=== PATIENT | male | born 1960 | race African-American/Black ===

== ENCOUNTER 2016-07-12 17:25 | Emergency (ER) | payer OTHER ==
[~2016-07-12 17:25] MED LIST: ACET-706 PO; ACET325T16 PO; AMLO10TA2 PO; ASPI81TA2 PO; ATOR10TA60 PO; ATOR40TA59 PO; BENZ100C PO; CARV3.122 PO; CARV6.252 PO; CLIN-44 PO; CYCL10TA2 PO; DOXY-103 PO; FLUT9.9S NS; LACT1CAP8 PO; LISI2.5T PO; LISI40TA PO; LOSA100T6 PO; METF500T4 PO; PANT40GR PO; PANT40TA5 PO; PRED-220 PO; RANI150C PO; RANI150T2 PO; SUCR1TAB PO; TICA90TA PO; TRAM50TA PO; VITA1CAP PO
[2016-07-12] MEDS ORDERED: ASPIRIN 81 MG TAB.CHEW PO ONE (17:45)
[2016-07-12] MEDS ORDERED: NITROGLYCERIN SUBLINGUAL 0.4 MG BOTTLE OF 25. SL PRN (17:45)
[2016-07-12] MEDS ORDERED: FENTANYL PF 100 MCG/2 ML VIAL. IV PRN (17:45)
--- NOTE | 2016-07-12 18:01 | ED.ADGEN ---
Past Medical History Past Medical History: Arrhythmia, CAD, Diabetes-Type II, High Cholesterol, Hypertension, [place] Additional Past Medical Histor: chronic back pain Past Surgical History: Cholecystectomy, Other Additional Past Surgical Histo: PACEMAKER, HERNIA Alcohol Use: None Drug Use: None Adult General Chief Complaint Chief Complaint: Congestion HPI HPI Patient is a 56 year old man, history of type 2 diabetes mellitus, hypokalemia , CAD, who presents to the emergency department with complaint of cough productive of yellow-green sputum over the past several days, development of chest pain with coughing today. Patient states that he was sweaty today, Dr. Gomes was 98 orally, he is afebrile in the ED without receiving antipyretics. He denies any chills, any nausea or vomiting, any weakness numbness or tingling, any injuries. He did receive his flu vaccination this year, and his pneumonia vaccination. Denies any sick contacts or exposures, any recent travel or surgery , any swelling of extremities. Is not expressing any chest pain without coughing , is also experiencing mild rhinorrhea, very mild shortness of breath. Review of Systems Review of Systems Constitutional: Denies fever or chills. [] Eyes: Denies change in visual acuity. [] HENT: Denies nasal congestion or sore throat. [] Respiratory: Productive cough, mild shortness of breath, [] Cardiovascular: Chest pain lower ribs on the right hand side. GI: Denies abdominal pain, nausea, vomiting, bloody stools or diarrhea. [] : Denies dysuria. [] Musculoskeletal: Denies back pain or joint pain. [] Integument: Denies rash. [] Neurologic: Denies headache, focal weakness or sensory changes. [] Endocrine: Denies polyuria or polydipsia. [] Lymphatic: Denies swollen glands. [] Psychiatric: Denies depression or anxiety. [] Current Medications Current Medications Current Medications Medications (Trade) Dose Ordered Sig/Georgi Start Time Stop Time Status Last Admin Dose Admin Aspirin (Children'S Aspirin) 324 mg 1X ONCE 07/12/16 17:45 07/12/16 17:55 DC Fentanyl Citrate (Fentanyl 2ml Vial) 25 mcg PRN Q15MIN PRN 07/12/16 17:45 07/12/16 17:55 DC Nitroglycerin (Nitrostat) 0.4 mg PRN Q5MIN PRN 07/12/16 17:45 07/12/16 17:55 DC Allergies Allergies Allergies Coded Allergies Type Severity Reaction Last Updated Verified Penicillins Allergy Intermediate Rash 09/10/14 Yes Sulfa (Sulfonamide Antibiotics) Allergy Intermediate Rash 09/10/14 Yes lisinopril Allergy Intermediate 09/13/15 Yes Physical Exam Physical Exam Constitutional: Well developed, obese, no acute distress, non-toxic appearance. [] HENT: Normocephalic, atraumatic, bilateral external ears normal, oropharynx moist, no oral exudates, nose normal. [] Eyes: PERRLA, EOMI, conjunctiva normal, no discharge. [] Neck: Normal range of motion, no tenderness, supple, no stridor. [] Cardiovascular:Heart rate regular rhythm, no murmur, S1, S2, no rubs or gallops. Patient with reproducible chest wall tenderness along the fifth through eighth ribs in the anterior portion of the right chest wall, some also along the left, and in the midsternal region, no lesions, no crepitus or deformity identified, does reduce the patient's symptoms. Lungs & Thorax: Bilateral breath sounds clear to auscultation [, no wheezing, rhonchi, rales.] Abdomen: Bowel sounds normal, soft, no tenderness, no masses, no pulsatile masses. [] Skin: Warm, dry, no erythema, no rash. [] Back: No tenderness, no CVA tenderness. [] Extremities: No tenderness, no cyanosis, no clubbing, ROM intact, no edema. Negative Homans sign. [] Neurologic: Alert and oriented X 3, normal motor function, normal sensory function, no focal deficits noted. [] Psychologic: Affect normal, judgement normal, mood normal. [] Current Patient Data Vital Signs Vital Signs Date Time Temp Pulse Resp B/P Pulse Ox O2 Delivery O2 Flow Rate FiO2 07/12/16 19:11 64 16 123/76 95 Room Air 07/12/16 17:45 98.0 98.0 Lab Values Laboratory Tests Test 07/12/16 17:55 07/12/16 17:58 Influenza Type A Antigen Negative (NEGATIVE) Influenza Type B Antigen Negative (NEGATIVE) Glucose (Fingerstick) 155mg/dL (70-99) H EKG EKG EC: Sinus rhythm, heart rate 80 bpm, upright axis, QTC of 416, MD 182, QRS is 72, mild baseline artifact noted, no ST elevations or depressions, no evidence of acute ST abnormalities. As interpreted by me. [] Radiology/Procedures Radiology/Procedures Chest x-ray: PA and lateral: Patient with a dual-chamber ACD pacemaker in place , normal cardiopulmonary silhouette, no infiltrates, no effusions, pneumothorax , no acute abnormalities identified. As interpreted by me. Course & Med Decision Making Course & Med Decision Making Pertinent Labs and Imaging studies reviewed. (See chart for details) Patient's examination is consistent with musculoskeletal chest pain, following several days of cough. I do not have any concerns that this is cardiac in nature , patient costochondritis-type, reproducible chest pain. He is afebrile in the ED, denies any fever at home, oxygen saturation heart rate within normal limits. Chest x-ray is unremarkable, flu swab is negative. Discussed the patient that he is likely expressing a viral illness, we discussed supportive measures, and concerning measures that would prompt return to the emergency room. Patient is feeling better after receiving medications in the ED, which is understanding and agreement with plan as stated. Discharged home in stable condition. Dragon Disclaimer Dragon Disclaimer This electronic medical record was generated, in whole or in part, using a voice recognition dictation system. Departure Impression: Primary Impression: Costochondral chest pain Additional Impression: Viral illness Disposition: HOME, SELF-CARE Condition: IMPROVED Scripts Benzonatate (Tessalon Perle)100 Mg Capsule1 Cap PO TID PRN COUGH #21 CAP Prov:LEIGH FRAZIER DO 07/12/16 Naproxen 250 Mg [id number] Mg PO BID PRN CHEST PAIN #10 Prov:LEIGH FRAZIER DO 07/12/16 Cyclobenzaprine Hcl 10 Mg Jgygqy60 Mg PO TID PRN MUSCLE PAIN #12 TAB Prov:LEIGH FRAZIER DO 07/12/16 Problem Qualifiers LEIGH FRAZIER DO Jul 12, 2016 18:01
--- NOTE | 2016-07-12 18:20 | EKG ---
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
[2016-07-12 18:27] LABS: OBC FLU VALID
[2016-07-12] MEDS ORDERED: BENZ100C PO (18:47)
[2016-07-12] MEDS ORDERED: NAPR250T2 PO (18:47)
[2016-07-12] MEDS ORDERED: CYCL10TA2 PO (18:47)
[2016-07-12 19:11] VITALS: BP 123/76
--- NOTE | 2016-07-13 09:00 | RAD ---
Portable chest, 07/12/2016: History: Cough Comparison is made to a study from 02/25/2016. A left-sided transvenous pacemaker remains in place with 2 leads extending into the right heart. The heart size and pulmonary vascularity are normal. No pulmonary infiltrates are seen. There is unchanged blunting of the right lateral costophrenic angle compatible with scarring. The posterior costophrenic angles are sharp without evidence of free pleural fluid. There is an old healed left clavicular fracture. IMPRESSION: No acute cardiopulmonary abnormality is detected.
== END 2016-07-12 19:14 | disposition home or self-care (01) ==
LOC: ER 17:25
DX: M94.0 Chondrocostal junction syndrome [Tietze] (principal); B34.9 Viral infection, unspecified; I10 Essential (primary) hypertension; E11.9 Type 2 diabetes mellitus without complications; E78.00 Pure hypercholesterolemia, unspecified; I25.10 Atherosclerotic heart disease of native coronary artery without angina pectoris; I25.2 Old myocardial infarction; G89.29 Other chronic pain; Z95.0 Presence of cardiac pacemaker; Z90.49 Acquired absence of other specified parts of digestive tract; Z88.0 Allergy status to penicillin; Z88.2 Allergy status to sulfonamides; Z88.8 Allergy status to other drugs, medicaments and biological substances
CPT/HCPCS: 71020; 82947; 87804; 93005; 99285-25

== ENCOUNTER → 2016-09-29 | Outpatient (CLI) | payer OTHER ==
[~2016-09-29] MED LIST changes: +NAPR250T2 PO
--- NOTE | 2016-09-29 15:55 | CARD ---
APPROVED REPORT EXAM: Two-dimensional and M-mode echocardiogram with Doppler and color Doppler. Other Information Quality : Average Rhythm : NSR, PPM INDICATION LV Function: 2D DIMENSIONS RVDd2.5 (2.9-3.5cm)Left Atrium(2D)3.6 (1.6-4.0cm) IVSd1.1 (0.7-1.1cm)Aortic Root(2D)3.1 (2.0-3.7cm) LVDd5.1 (3.9-5.9cm)LVOT Diameter2.1 (1.8-2.4cm) PWd1.1 (0.7-1.1cm)LVDs3.7 (2.5-4.0cm) FS (%) 37.2 %SV64.5 ml LVEF(%)62.7 (>50%) Aortic Valve AoV Peak Woo.151.2cm/sAoV VTI25.8cm AO Peak GR.9.1mmHgLVOT Peak Woo.128.3cm/s LVOT VTI 24.50cmAO Mean GR.4mmHg ROXANNA (VMAX)2.69if2KAF (VTI)3.25cm2 Mitral Valve MV E Qkmzoyas55.4cm/sMV DECEL DVUH170wa MV A Dmvfnhpt80.3cm/sMV E Mean Gr.2mmHg MV RJZ87dzK/A Ratio0.8 MV A Kxmtzunf938qyBNU (PHT)4.76cm2 TDI E/Lateral E'4.9E/Medial E'7.7 Pulmonary Valve PV Peak Xmsjttnk905.4cm/sPV Peak Grad.4mmHg RVOT VTI14.2cm Tricuspid Valve TR P. Gjmzzzwu002lg/sRAP KRVXTDVE8dlSj TR Peak Gr.80leRxBHGV73ztFa Pulmonary Vein S1 Auoehpul56.5cm/sD2 Pbqerzjs15.8cm/s LEFT VENTRICLE The left ventricle is normal size. There is normal left ventricular wall thickness. Left ventricle sy stolic function is normal. The Ejection Fraction is 60-65%. There is normal LV segmental wall motion. Tissue Doppler imaging reveals mild left ventricular diastolic dysfunction. Transmitral Doppler flow pattern is Grade I-abnormal relaxation pattern. RIGHT VENTRICLE The right ventricle is normal size. The right ventricular systolic function is normal. There is a pac emaker lead seen in the RV/RA. ATRIA The left atrium size is normal. The right atrium size is normal. The interatrial septum is intact wit h no evidence for an atrial septal defect or patent foramen ovale as noted on 2-D or Doppler imaging. AORTIC VALVE The aortic valve is normal in structure and function. The aortic valve is trileaflet. Doppler and Col or Flow revealed no significant aortic regurgitation. There is no significant aortic valvular stenosi s. MITRAL VALVE The mitral valve is normal in structure. There is no mitral valve stenosis. Doppler and Color Flow re vealed mild mitral regurgitation. TRICUSPID VALVE The tricuspid valve is normal in structure and function. Doppler and Color Flow revealed moderate tri cuspid regurgitation. The PA pressure was estimated at 33 mmHg. There is no tricuspid valve stenosis. PULMONIC VALVE The pulmonic valve is not well visualized. Doppler and Color Flow revealed no pulmonic valvular regur gitation. There is no pulmonic valvular stenosis. GREAT VESSELS The aortic root is normal in size. Normal pulmonary venous flow (Doppler). The IVC is normal in size and collapses >50% with inspiration. PERICARDIAL EFFUSION There is no evidence of significant pericardial effusion. Critical Notification Critical Value: No <Conclusion> Left ventricle systolic function is normal. The Ejection Fraction is 60-65%. There is normal LV segmental wall motion. Transmitral Doppler flow pattern is Grade I-abnormal relaxation pattern. Mild mitral regurgitation. Moderate tricuspid regurgitation. The PA pressure was estimated at 33 mmHg. There is no evidence of significant pericardial effusion.
== END | disposition home or self-care (01) ==
LOC: ECHO 12:41
PROVIDERS: ATTEND Internal Medicine Cardiovascular Disease
DX: Z95.0 Presence of cardiac pacemaker (principal); I08.1 Rheumatic disorders of both mitral and tricuspid valves
CPT/HCPCS: 93306

== ENCOUNTER → 2017-10-19 | Outpatient (CLI) | payer OTHER | END | disposition home or self-care (01) | LOC: ECHO 10:40 | DX: I08.1 Rheumatic disorders of both mitral and tricuspid valves (principal); I25.10 Atherosclerotic heart disease of native coronary artery without angina pectoris; I27.20 Pulmonary hypertension, unspecified | CPT/HCPCS: 93306 ==

== ENCOUNTER 2018-01-29 23:57 | Inpatient (IN) | payer OTHER ==
[~2018-01-29] VITALS: Ht 172.7 cm; Wt 126.1 kg
[~2018-01-29 23:57] MED LIST changes: +ASPI-630 PO; -ASPI81TA2 PO; -CLIN-44 PO; +CLIN150C14 PO; -DOXY-103 PO; +DOXY100T10 PO; +LISI-130 PO; -LISI40TA PO; -METF500T4 PO; +METF500T5 PO; -NAPR250T2 PO; +NAPR250T6 PO
[2018-01-30] MEDS ORDERED: NITROGLYCERIN SUBLINGUAL 0.4 MG BOTTLE OF 25. SL PRN (00:30)
--- NOTE | 2018-01-30 00:39 | PHYS DOC ---
Past Medical History Past Medical History: Arrhythmia, CAD, Diabetes-Type II, High Cholesterol, Hypertension, [place] Additional Past Medical Histor: chronic back pain, [place] 2016 Past Surgical History: Cholecystectomy, Other Additional Past Surgical Histo: PACEMAKER, HERNIA Alcohol Use: None Drug Use: None Adult General Chief Complaint Chief Complaint: CHEST PAIN HPI HPI Patient is a 57 year old male who presents with chest pain. Patient has a history of non-STEMI in review area of 2016 which resulted in placement of a drug-eluting stent in the LAD. Patient is followed by Dr. Bosch. Patient also has a history significant for type 2 diabetes, hyperlipidemia, hypertension , GERD and sick sinus syndrome with a pacemaker placed. Patient states his chest pain started earlier this evening which was several hours ago and that he did take aspirin and nitroglycerin prior to arrival. Patient now is pain-free no acute distress. Pt most recently had an echo done in October [address] Waite with the following results: The left ventricular systolic function is normal and the ejection fraction is within normal range. The Ejection Fraction is 55-60%. There is normal LV segmental wall motion. There is a pacemaker lead in the right ventricle. Doppler and Color-flow revealed mild mitral regurgitation. Doppler and Color Flow revealed mild to moderate tricuspid regurgitation. There is moderate pulmonary hypertension. The PA pressure was estimated at 41 mmHg. Signed by : Jorge Waite, Electronically Approved : 10/19/2017 12:02:25 Review of Systems Review of Systems Constitutional: Denies fever or chills [] Eyes: Denies change in visual acuity, redness, or eye pain [] HENT: Denies nasal congestion or sore throat [] Respiratory: Denies cough or shortness of breath [] Cardiovascular: No additional information not addressed in HPI [] GI: Denies abdominal pain, nausea, vomiting, bloody stools or diarrhea [] : Denies dysuria or hematuria [] Musculoskeletal: Denies back pain or joint pain [] Integument: Denies rash or skin lesions [] Neurologic: Denies headache, focal weakness or sensory changes [] Endocrine: Denies polyuria or polydipsia [] All other systems were reviewed and found to be within normal limits, except as documented in this note. Current Medications Current Medications Current Medications Medications (Trade) Dose Ordered Sig/Georgi Start Time Stop Time Status Last Admin Dose Admin Aspirin (Children'S Aspirin) 324 mg 1X ONCE 8/21/18 01:00 01/30/18 01:01 Nitroglycerin (Nitrostat) 0.4 mg PRN Q5MIN PRN 01/30/18 00:30 Allergies Allergies Allergies Coded Allergies Type Severity Reaction Last Updated Verified Penicillins Allergy Intermediate Rash 09/10/14 Yes Sulfa (Sulfonamide Antibiotics) Allergy Intermediate Rash 09/10/14 Yes lisinopril Allergy Intermediate 09/13/15 Yes Physical Exam Physical Exam Constitutional: Well developed, well nourished, no acute distress, non-toxic appearance. [] HENT: Normocephalic, atraumatic, bilateral external ears normal, oropharynx moist, no oral exudates, nose normal. [] Eyes: PERRLA, EOMI, conjunctiva normal, no discharge. [] Neck: Normal range of motion, no tenderness, supple, no stridor. [] Cardiovascular:Heart rate regular rhythm, no murmur [] Lungs & Thorax: Bilateral breath sounds clear to auscultation [] Abdomen: Bowel sounds normal, soft, no tenderness, no masses, no pulsatile masses. [] Skin: Warm, dry, no erythema, no rash. [] Back: No tenderness, no CVA tenderness. [] Extremities: No tenderness, no cyanosis, no clubbing, ROM intact, no edema. [] Neurologic: Alert and oriented X 3, normal motor function, normal sensory function, no focal deficits noted. [] Psychologic: Affect normal, judgement normal, mood normal. [] Current Patient Data Vital Signs Vital Signs Date Time Temp Pulse Resp B/P (MAP) Pulse Ox O2 Delivery O2 Flow Rate FiO2 01/30/18 00:02 98.8 71 18 168/86 (113) 95 Room Air 98.8 EKG EKG Normal sinus rhythm at a rate of 81[] Radiology/Procedures Radiology/Procedures [] Course & Med Decision Making Course & Med Decision Making Pertinent Labs and Imaging studies reviewed. (See chart for details) [] Dragon Disclaimer Dragon Disclaimer This electronic medical record was generated, in whole or in part, using a voice recognition dictation system. Departure Departure Referrals: RANDY YOUNG MD (PCP) RONALD SANTOS MD Jan 30, 2018 00:39
[2018-01-30] MEDS ORDERED: ASPIRIN CHEWABLE 81 MG TABLET. PO ONE (01:00)
[2018-01-30 01:04] LABS: BASO # 0.1 x10^3/uL (0.0-0.2); BASO % 1 % (0-3); EOS # 0.3 x10^3/uL (0.0-0.7); EOS % 3 % (0-3); HEMATOCRIT 37.8 % (39.0-53.0); HEMOGLOBIN 12.6 g/dL (13.0-17.5); LYMPH # 2.5 x10^3/uL (1.0-4.8); LYMPH % 26 % (24-48); MEAN CORPUSCULAR HEMOGLOBIN 30 pg (25-35); MEAN CORPUSCULAR HGB CONC 33 g/dL (31-37); MEAN CORPUSCULAR VOLUME 90 fL (79-100); MONO # 0.8 x10^3/uL (0.0-1.1); MONO % 8 % (0-9); NEUT # 5.9 x10^3uL (1.8-7.7); NEUT % 62 % (31-73); PLATELET COUNT 321 x10^3/uL (140-400); RED BLOOD COUNT 4.18 x10^6/uL (4.30-5.70); RED CELL DISTRIBUTION WIDTH 15.3 % (11.5-14.5); WHITE BLOOD COUNT 9.6 x10^3/uL (4.0-11.0)
[2018-01-30 01:14] LABS: CALCIUM 9.5 mg/dL (8.5-10.1); CREATININE 1.3 mg/dL (0.7-1.3); GFR 68.4; POTASSIUM 3.8 mmol/L (3.5-5.1)
[2018-01-30 01:20] LABS: ALBUMIN 3.4 g/dL (3.4-5.0); TOTAL BILIRUBIN 0.7 mg/dL (0.2-1.0); TOTAL PROTEIN 6.9 g/dL (6.4-8.2)
--- NOTE | 2018-01-30 02:04 | EKG ---
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
[2018-01-30 04:00] VITALS: BP 151/88
[2018-01-30] MEDS ORDERED: DEXTROSE 50% 25 GM / 50ML DISP.SYRIN. IV PRN (05:00)
[2018-01-30 07:00] VITALS: BP 142/68
--- NOTE | 2018-01-30 07:46 | RAD ---
Portable chest, 01/30/2018: HISTORY: Chest pain Comparison is made to a study from 07/12/2016. A left-sided transvenous pacemaker remains in place with 2 leads extending in the right heart. The heart is at the upper limits of normal in size. The pulmonary vascularity is normal. There is minimal linear scarring or atelectasis in the right parahilar region. There is increased density projected over the lung bases due to the patient's overlying abdominal pannus. No definite pulmonary consolidation or pleural fluid is seen. IMPRESSION: 1. Borderline cardiomegaly. 2. Minimal right perihilar linear scarring or atelectasis. Electronically signed by: Arthur Gray MD (01/30/2018 7:43 AM) [facility]
[2018-01-30] MEDS ORDERED: ESCITALOPRAM OX20 MG PO (08:27)
[2018-01-30] MEDS ORDERED: ACETAMINOPHEN 325 MG TABLET. PO PRN (08:30)
--- NOTE | 2018-01-30 08:41 | PDOC ---
PROGRESS NOTES Subjective Subjective Patient without complaint, denies CP or SOA. Objective Objective Vital Signs Date Time Temp Pulse Resp B/P (MAP) Pulse Ox O2 Delivery O2 Flow Rate FiO2 01/30/18 07:00 97.7 72 17 142/68 (92) 94 97.7 01/30/18 04:31 Room Air Intake and Output 01/30/18 07:00 Intake Total 0 ml Balance 0 ml Intake Oral 0 ml Physical Exam Abdomen: Normal bowel sounds, Soft, No tenderness Heart: Regular rate Extremities: No edema General: Alert, Oriented X3, No acute distress Lungs: Clear to auscultation Plan Plan of Care 1. Chest pain and palpitations with hx CAD - symptoms resolved. EKG reportedly WNL. First Troponin negative. Telemetry shows patient in sinus presently but some runs of HR in the 90's with wide QRS suggesting paced rhythm? Check another troponin. Will consult Dr Bosch to review patient's telemetry. Had normal pacemaker check last month per office chart. Anticipate home later today if troponin is negative and Cardiology in agreement. Patient had echo and MPI in October that were unremarkable. 2. HTN - controlled, continue home meds. 3. DM2 - controlled with Metformin. 4. chronic anxiety - stable, continue Lexapro. Comment Review of Relevant I have reviewed the following items selvin (where applicable) has been applied. Labs Laboratory Tests Test 01/30/18 00:49 01/30/18 01:50 01/30/18 07:07 White Blood Count 9.6 x10^3/uL (4.0-11.0) Red Blood Count 4.18 x10^6/uL (4.30-5.70) Hemoglobin 12.6 g/dL (13.0-17.5) Hematocrit 37.8 % (39.0-53.0) Mean Corpuscular Volume 90 fL (79-100) Mean Corpuscular Hemoglobin 30 pg (25-35) Mean Corpuscular Hemoglobin Concent 33 g/dL (31-37) Red Cell Distribution Width 15.3 % (11.5-14.5) Platelet Count 321 x10^3/uL (140-400) Neutrophils (%) (Auto) 62 % (31-73) Lymphocytes (%) (Auto) 26 % (24-48) Monocytes (%) (Auto) 8 % (0-9) Eosinophils (%) (Auto) 3 % (0-3) Basophils (%) (Auto) 1 % (0-3) Neutrophils # (Auto) 5.9 x10^3uL (1.8-7.7) Lymphocytes # (Auto) 2.5 x10^3/uL (1.0-4.8) Monocytes # (Auto) 0.8 x10^3/uL (0.0-1.1) Eosinophils # (Auto) 0.3 x10^3/uL (0.0-0.7) Basophils # (Auto) 0.1 x10^3/uL (0.0-0.2) Sodium Level 141 mmol/L (136-145) Potassium Level 3.8 mmol/L (3.5-5.1) Chloride Level 103 mmol/L (98-107) Carbon Dioxide Level 27 mmol/L (21-32) Anion Gap 11 (6-14) Blood Urea Nitrogen 13 mg/dL (8-26) Creatinine 1.3 mg/dL (0.7-1.3) Estimated GFR (Cockcroft-Gault) 68.4 BUN/Creatinine Ratio 10 (6-20) Glucose Level 138 mg/dL (70-99) Calcium Level 9.5 mg/dL (8.5-10.1) Total Bilirubin 0.7 mg/dL (0.2-1.0) Aspartate Amino Transf (AST/SGOT) 19 U/L (15-37) Alanine Aminotransferase (ALT/SGPT) 35 U/L (16-63) Alkaline Phosphatase 163 U/L (46-116) Creatine Kinase 122 U/L (39-308) Creatine Kinase MB (Mass) 1.1 ng/mL (0.0-3.6) Creatine Kinase MB Relative Index 0.9 % (0-4) Total Protein 6.9 g/dL (6.4-8.2) Albumin 3.4 g/dL (3.4-5.0) Albumin/Globulin Ratio 1.0 (1.0-1.7) Bedside Troponin I 0.00 ng/ml (<0.08) Glucose (Fingerstick) 101 mg/dL (70-99) Laboratory Tests Test 01/30/18 00:49 01/30/18 01:50 01/30/18 07:07 White Blood Count 9.6 x10^3/uL (4.0-11.0) Red Blood Count 4.18 x10^6/uL (4.30-5.70) Hemoglobin 12.6 g/dL (13.0-17.5) Hematocrit 37.8 % (39.0-53.0) Mean Corpuscular Volume 90 fL (79-100) Mean Corpuscular Hemoglobin 30 pg (25-35) Mean Corpuscular Hemoglobin Concent 33 g/dL (31-37) Red Cell Distribution Width 15.3 % (11.5-14.5) Platelet Count 321 x10^3/uL (140-400) Neutrophils (%) (Auto) 62 % (31-73) Lymphocytes (%) (Auto) 26 % (24-48) Monocytes (%) (Auto) 8 % (0-9) Eosinophils (%) (Auto) 3 % (0-3) Basophils (%) (Auto) 1 % (0-3) Neutrophils # (Auto) 5.9 x10^3uL (1.8-7.7) Lymphocytes # (Auto) 2.5 x10^3/uL (1.0-4.8) Monocytes # (Auto) 0.8 x10^3/uL (0.0-1.1) Eosinophils # (Auto) 0.3 x10^3/uL (0.0-0.7) Basophils # (Auto) 0.1 x10^3/uL (0.0-0.2) Sodium Level 141 mmol/L (136-145) Potassium Level 3.8 mmol/L (3.5-5.1) Chloride Level 103 mmol/L (98-107) Carbon Dioxide Level 27 mmol/L (21-32) Anion Gap 11 (6-14) Blood Urea Nitrogen 13 mg/dL (8-26) Creatinine 1.3 mg/dL (0.7-1.3) Estimated GFR (Cockcroft-Gault) 68.4 BUN/Creatinine Ratio 10 (6-20) Glucose Level 138 mg/dL (70-99) Calcium Level 9.5 mg/dL (8.5-10.1) Total Bilirubin 0.7 mg/dL (0.2-1.0) Aspartate Amino Transf (AST/SGOT) 19 U/L (15-37) Alanine Aminotransferase (ALT/SGPT) 35 U/L (16-63) Alkaline Phosphatase 163 U/L (46-116) Creatine Kinase 122 U/L (39-308) Creatine Kinase MB (Mass) 1.1 ng/mL (0.0-3.6) Creatine Kinase MB Relative Index 0.9 % (0-4) Total Protein 6.9 g/dL (6.4-8.2) Albumin 3.4 g/dL (3.4-5.0) Albumin/Globulin Ratio 1.0 (1.0-1.7) Bedside Troponin I 0.00 ng/ml (<0.08) Glucose (Fingerstick) 101 mg/dL (70-99) Medications Current Medications Aspirin (Children'S Aspirin) 324 mg 1X ONCE PO Last administered on 01/30/18at 01:02; Start 01/30/18 at 01:00; Stop 01/30/18 at 01:01; Status DC Nitroglycerin (Nitrostat) 0.4 mg PRN Q5MIN PRN SL CHEST PAIN; Start 01/30/18 at 00:30 Dextrose (Dextrose 50%-Water Syringe) 12.5 gm PRN Q15MIN PRN IV SEE COMMENTS; Start 01/30/18 at 05:00 Acetaminophen (Tylenol) 650 mg PRN Q6HRS PRN PO MILD PAIN / TEMP; Start at 08:30; Status UNV Aspirin (Children'S Aspirin) 81 mg DAILY PO ; Start 01/30/18 at 09:00; Status UNV Atorvastatin Calcium (Lipitor) 40 mg HS PO ; Start 01/30/18 at 21:00; Status UNV Carvedilol (Coreg) 6.25 mg BIDWMEALS PO ; Start 01/30/18 at 17:00; Status UNV Pantoprazole Sodium (Protonix) 40 mg DAILY PO ; Start 01/30/18 at 09:00; Status UNV Non-Formulary Medication (Fluticasone Propionate (Flonase Allergy Relief)) 2 sprays DAILY NS ; Start 01/30/18 at 09:00; Status UNV Non-Formulary Medication (Losartan Potassium ) 100 mg DAILY PO ; Start 01/30/18 at 09:00; Status UNV Active Scripts Active Escitalopram Oxalate 20 Mg Tablet 1 Tab PO DAILY Naproxen 250 Mg Tablet 250 Mg PO BID PRN Carvedilol 6.25 Mg Tablet 6.25 Mg PO BIDWMEALS Mapap (Acetaminophen) 325 Mg Tablet 650 Mg PO PRN Q6HRS PRN Atorvastatin Calcium 40 Mg Tablet 40 Mg PO HS Reported Losartan Potassium 100 Mg Tablet 100 Mg PO DAILY LAST DOSE GIVEN: DATE: 02/06/16 TIME: 9 AM NEXT DOSE DUE: DATE: 02/07/16 TIME: 9 AM Flonase Allergy Relief (Fluticasone Propionate) 9.9 Ml [place].susp 2 Sprays NS DAILY Aspirin 81 Mg Tab.chew 1 Tab PO DAILY LAST DOSE GIVEN: DATE: 02/06/16 TIME: 9 AM NEXT DOSE DUE: DATE: 02/07/16 TIME: 9 AM Metformin Hcl 500 Mg Tablet 1 Tab PO DAILY LAST DOSE GIVEN: DATE: 02/06/16 TIME: 9 AM NEXT DOSE DUE: DATE: 02/07/16 TIME: 9 AM Pantoprazole Sodium 40 Mg Tablet.dr 40 Mg PO DAILY LAST DOSE GIVEN: DATE: 02/06/16 TIME: 7:30 AM NEXT DOSE DUE: DATE: 02/07/16 TIME: one hour to one half hour before breakfast Vitals/I & O Vital Sign - Last 24 Hours 01/30/18 01/30/18 01/30/18 01/30/18 00:02 04:00 04:31 07:00 Temp 98.8 97.7 97.7 98.8 97.7 97.7 Pulse 71 59 72 Resp 18 18 17 B/P (MAP) 168/86 (113) 151/88 (109) 142/68 (92) Pulse Ox 95 94 94 O2 Delivery Room Air Room Air Room Air Intake and Output 01/29/18 01/29/18 01/30/18 15:00 23:00 07:00 Intake Total 0 ml Balance 0 ml RANDY YOUNG MD Jan 30, 2018 08:41
[2018-01-30] MEDS ORDERED: LOSARTAN POTASSIUM 50 MG TABLET. PO SCH (09:00)
[2018-01-30] MEDS ORDERED: FLUTICASONE 50MCG/NASAL SPRAY 16GM BOTTLE. NS SCH (09:00)
[2018-01-30] MEDS ORDERED: PANTOPRAZOLE 40 MG TABLET.DR. PO SCH (09:00)
[2018-01-30] MEDS ORDERED: ASPIRIN CHEWABLE 81 MG TABLET. PO SCH (09:00)
[2018-01-30] MEDS ORDERED: CARVEDILOL 6.25 MG TABLET. PO SCH (09:00)
--- NOTE | 2018-01-30 09:22 | SSS ---
ADMIT DATE: DATE OF DISCHARGE: 01/30/2018. CHIEF COMPLAINT: Chest pain and palpitations. HISTORY OF PRESENT ILLNESS: The patient is a 57-year-old male with a history of coronary artery disease who presented to the Emergency Room with the above complaint. He reported the onset of palpitations on the evening prior to admission. He was at home and got up to go take his nighttime medications. He had the onset of palpitations. These were accompanied by some diffuse chest pain and mild lightheadedness. He sat down and rested and the symptoms resolved, but then they recurred. He called ambulance and was brought to the Emergency Room. Initial evaluation there included a troponin, which was 0.00. Chest x-ray was clear, and an EKG was reportedly without acute ischemic change. Due to his history of coronary artery disease, the patient was admitted for further evaluation. PAST MEDICAL HISTORY: Coronary artery disease with stent placement to the LAD, non-ST elevated myocardial infarction 07/28. Asthma, sick sinus syndrome, diabetes mellitus type 2, hypertension, hyperlipidemia, chronic anxiety, GERD, allergic rhinitis. PAST SURGICAL HISTORY: Pacemaker placement, cholecystectomy, umbilical hernia repair. ALLERGIES: THE PATIENT IS ALLERGIC TO PENICILLINS, SULFA AND LISINOPRIL. HOME MEDICATIONS: Aspirin 81 mg daily, fexofenadine 180 mg daily, albuterol inhaler p.r.n., losartan 100 mg daily, metformin extended release 500 mg daily, carvedilol 6.25 mg b.i.d., atorvastatin 40 mg at bedtime, escitalopram 20 mg daily, pantoprazole 40 mg daily, Flonase daily. FAMILY HISTORY: Noncontributory. SOCIAL HISTORY: The patient is single. He has a long smoking history, but quit smoking in 2013. He does not drink alcohol to excess. 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 REVIEW OF SYSTEMS: The patient denies fever or chills. He denies cough or wheezing. He denies other recent episodes of chest pain or palpitations. He denies abdominal pain, nausea or vomiting. He denies problems with his bowels. PHYSICAL EXAMINATION: GENERAL: The patient is alert and oriented x 3, resting comfortably in bed in no acute distress. HEENT: PERRL, EOMI, sclerae clear. Oropharynx: Mucous membranes moist. NECK: Supple, without lymphadenopathy. CHEST: Clear to auscultation. CARDIOVASCULAR: Regular rhythm without murmur. ABDOMEN: Soft, nontender, normoactive bowel sounds are present. EXTREMITIES: Without edema. HOSPITAL COURSE: The patient has had no further symptoms since admission. He is in sinus rhythm on telemetry. However, telemetry also shows some runs of a heart rate in the 90s with a wide QRS, suggesting a paced rhythm. Dr. Bosch was consulted to review the patient's telemetry. The patient did have a normal pacemaker check last month. He also had an echocardiogram and an MPI in October that were unremarkable. Dr Bosch felt that the patient's symptoms could be related to his sensing the ventricular pacing but that the pacemaker is working properly and no changes to it are indicated. The second Troponin was also negative and Cardiology felt the patient was stable for discharge home. The patient's other chronic medical conditions including hypertension, diabetes and chronic anxiety have been controlled with his usual medications, and these will be continued. FINAL DIAGNOSES: 1. Palpitations. 2. Coronary artery disease. 3. Hypertension. 4. Diabetes mellitus type 2. 5. Chronic anxiety. 6. Asthma. DISCHARGE MEDICATIONS: Remain the same as at admission. FOLLOWUP: With Dr. Lopez within 2 weeks. RANDY LOPEZ MD DR: SLOAN/freddy JOB#: [id number] / [id number] LOKESH
[2018-01-30 11:00] VITALS: BP 150/84
--- NOTE | 2018-01-30 11:37 | PDOC2 ---
DAYSIBEN Dwight [employer]ISH [employer] A [employer]ANG[employer] IN[employer] 01/30/18 1137: CARDIAC CONSULT DATE OF CONSULT Date of Consult DATE: 01/30/18 TIME: 11:21 REASON FOR CONSULT Reason for Consult: palpitations and abnormal telemetry REFERRING PHYSICIAN Referring Physician: Jessica SOURCE Source: Chart review, Patient HISTORY OF PRESENT ILLNESS HISTORY OF PRESENT ILLNESS 57 year old male well known to this practice with a history of NSTEMI/CAD and previous PCI/ROSA to the LAD, SSS with dual chamber [facility] PPM, HTN, HLD and obesity who presented to ER yesterday with c/o chest pain which he treated with ASA and NTG. Symptoms occurred prior to arrival in ER and have not recurred with exception of palpitations. Currently symptom free in bed with cardiology evaluation in October demonstrating fixed inferior defect and preserved LV function. EKG without acute changes and troponin levels not consistent with AMI. Reason for Visit: abnormal telemetry PAST MEDICAL HISTORY Cardiovascular: CAD (with ROSA to LAD - 2015), HTN, Hyperlipidemia, Other (SSS with [facility] PPM) Pulmonary: Asthma GI: Other (obesity) Psych: Anxiety, Depression ENT: Allergic Rhinitis Endocrine: Diabetes (type II) PAST SURGICAL HISTORY Past Surgical History: Pacemaker, Cholecystectomy, Hernia Repair FAMILY HISTORY Family History: Alzheimer's Disease, Diabetes, Heart Disease SOCIAL HISTORY Smoke: Quit ALCOHOL: none Drugs: None Lives: Alone CURRENT MEDICATIONS CURRENT MEDICATIONS Current Medications Medications (Trade) Dose Ordered Sig/Georgi Route PRN Reason Start Time Stop Time Status Last Admin Dose Admin Aspirin (Children'S Aspirin) 324 mg 1X ONCE PO 01/30/18 01:00 01/30/18 01:01 DC 01/30/18 01:02 Aspirin (Children'S Aspirin) 81 mg DAILY PO 01/30/18 09:00 01/30/18 08:57 Carvedilol (Coreg) 6.25 mg BIDWMEALS PO 01/30/18 09:00 01/30/18 08:57 Pantoprazole Sodium (Protonix) 40 mg DAILYAC PO 01/30/18 09:00 01/30/18 08:57 Fluticasone Propionate (Flonase) 2 spray DAILY NS 01/30/18 09:00 01/30/18 08:57 Losartan Potassium (Cozaar) 100 mg DAILY PO 01/30/18 09:00 01/30/18 08:57 ALLERGIES ALLERGIES: Coded Allergies: Penicillins (Verified Allergy, Intermediate, Rash, 09/10/14) Sulfa (Sulfonamide Antibiotics) (Verified Allergy, Intermediate, Rash, 09/10) lisinopril (Verified Allergy, Intermediate, 09/13/15) caused cough ROS Review of System 10 point review with pertinent positives in HPI PHYSICAL EXAM General: Alert, Oriented X3, Cooperative, No acute distress HEENT: Atraumatic, PERRLA Lungs: Clear to auscultation Heart: Normal S1, Normal S2 Abdomen: Normal bowel sounds, Soft Extremities: Normal pulses Skin: No rashes Neuro: Normal speech Psych/Mental Status: Mental status NL, Mood NL MUSCULOSKELETAL: No deformity VITALS VITALS Vital Signs Date Time Temp Pulse Resp B/P (MAP) Pulse Ox O2 Delivery O2 Flow Rate FiO2 01/30/18 08:57 72 142/68 01/30/18 08:00 Room Air 01/30/18 07:00 97.7 17 94 97.7 LABS Lab: Laboratory Tests Test 01/30/18 00:49 01/30/18 01:50 01/30/18 07:07 01/30/18 09:00 White Blood Count 9.6 x10^3/uL (4.0-11.0) Red Blood Count 4.18 x10^6/uL (4.30-5.70) Hemoglobin 12.6 g/dL (13.0-17.5) Hematocrit 37.8 % (39.0-53.0) Mean Corpuscular Volume 90 fL (79-100) Mean Corpuscular Hemoglobin 30 pg (25-35) Mean Corpuscular Hemoglobin Concent 33 g/dL (31-37) Red Cell Distribution Width 15.3 % (11.5-14.5) Platelet Count 321 x10^3/uL (140-400) Neutrophils (%) (Auto) 62 % (31-73) Lymphocytes (%) (Auto) 26 % (24-48) Monocytes (%) (Auto) 8 % (0-9) Eosinophils (%) (Auto) 3 % (0-3) Basophils (%) (Auto) 1 % (0-3) Neutrophils # (Auto) 5.9 x10^3uL (1.8-7.7) Lymphocytes # (Auto) 2.5 x10^3/uL (1.0-4.8) Monocytes # (Auto) 0.8 x10^3/uL (0.0-1.1) Eosinophils # (Auto) 0.3 x10^3/uL (0.0-0.7) Basophils # (Auto) 0.1 x10^3/uL (0.0-0.2) Sodium Level 141 mmol/L (136-145) Potassium Level 3.8 mmol/L (3.5-5.1) Chloride Level 103 mmol/L (98-107) Carbon Dioxide Level 27 mmol/L (21-32) Anion Gap 11 (6-14) Blood Urea Nitrogen 13 mg/dL (8-26) Creatinine 1.3 mg/dL (0.7-1.3) Estimated GFR (Cockcroft-Gault) 68.4 BUN/Creatinine Ratio 10 (6-20) Glucose Level 138 mg/dL (70-99) Calcium Level 9.5 mg/dL (8.5-10.1) Total Bilirubin 0.7 mg/dL (0.2-1.0) Aspartate Amino Transf (AST/SGOT) 19 U/L (15-37) Alanine Aminotransferase (ALT/SGPT) 35 U/L (16-63) Alkaline Phosphatase 163 U/L (46-116) Creatine Kinase 122 U/L (39-308) Creatine Kinase MB (Mass) 1.1 ng/mL (0.0-3.6) Creatine Kinase MB Relative Index 0.9 % (0-4) Total Protein 6.9 g/dL (6.4-8.2) Albumin 3.4 g/dL (3.4-5.0) Albumin/Globulin Ratio 1.0 (1.0-1.7) Bedside Troponin I 0.00 ng/ml (<0.08) Glucose (Fingerstick) 101 mg/dL (70-99) Troponin I Quantitative < 0.017 ng/mL (0.000-0.055) IMAGES IMAGES CXR: Comparison is made to a study from 07/12/2016. A left-sided transvenous pacemaker remains in place with 2 leads extending in the right heart. The heart is at the upper limits of normal in size. The pulmonary vascularity is normal. There is minimal linear scarring or atelectasis in the right parahilar region. There is increased density projected over the lung bases due to the patient's overlying abdominal pannus. No definite pulmonary consolidation or pleural fluid is seen. IMPRESSION: 1. Borderline cardiomegaly. 2. Minimal right perihilar linear scarring or atelectasis. EKG EKG SR without acute changes ECHOCARDIOGRAM ECHOCARDIOGRAM 10/19/2017: TTE: The left ventricular systolic function is normal and the ejection fraction is within normal range. The Ejection Fraction is 55-60%. There is normal LV segmental wall motion. There is a pacemaker lead in the right ventricle. Doppler and Color-flow revealed mild mitral regurgitation. Doppler and Color Flow revealed mild to moderate tricuspid regurgitation. There is moderate pulmonary hypertension. The PA pressure was estimated at 41 mmHg. STRESS TEST STRESS TEST 10/19/2017: MPI: 1. No evidence of stress induced EKG changes. 2. Fixed inferior wall defect. 3. Normal LV function. EF > 65% 4. Low risk study. HEART CATH HEART CATH 08/05/2015: Hemodynamics. Left ventricular pressure 118/14, aortic root pressure 116/68. Coronaries. Left main. The left main was a short vessel with no lesions. Left anterior descending. The LAD was a moderate size vessel. It had a diffuse proximal to mid lesion of 90% or greater. Left circumflex. The left circumflex was a moderately large vessel. It had mid 25-30% lesion present. Right coronary artery. The right coronary was a large dominant vessel. It had mid 20% lesion. <Conclusion> Severe single coronary artery disease with a 90% lesion of the LAD. Mild to moderate disease in the left circumflex and the right coronary artery with no lesions greater than 30%. Successful drug-eluting stent placement to the LAD lesion decreasing a 90% lesion to 0%. ASSESSMENT/PLAN ASSESSMENT/PLAN 1. abnormal telemetry --tele strip reviewed --wide complex rhythm likely V-paced, however, pace detect not enabled on tele monitor, couple of beats appear to have very small spikes --? palps associated with this; known to have symptoms with ventricular pacing and this is noted on last interrogation done in December --contact office and RN reviewed January download on PPM -- no significant findings & no abnormalities --continue to monitor via remote PPM monitoring 2. chest pain --known disease with stent to LAD in 2015 --? related to ventricular pacing --ischemic evaluation in May demonstrated fixed inferior defect on MPI and preserved LV function --no indication for further evaluation at this point; if continued/recurrent CP then would consider cardiac cath for further evaluation 3. SSS with dual chamber PPM --interrogations/downloads as noted above --continue routine monitoring 4. anxiety --suspect his anxiety is playing into symptoms Agreeable with discharge; follow up with Dr. Bosch in the office LUDMILA BOSCH MD 01/30/187: CARDIAC CONSULT ASSESSMENT/PLAN ASSESSMENT/PLAN Patient seen and examined. Agree with [employer]'s assessment and plan. Tele showed ventricular paced rhythm Recent device check showed normal function CP atypical - LA ruled out Recent MPI without any significant ischemia Follow up in our office as scheduled Thank you for your consultation BEN TAVAREZ APRN Jan 30, 2018 11:37 LUDMILA BOSCH MD Jan 30, 2018 21:06
[2018-01-30] MEDS ORDERED: ATORVASTATIN CALCIUM 40 MG TABLET. PO SCH (21:00)
== END 2018-01-30 13:18 | disposition home or self-care (01) | DRG 303 ==
LOC: ER 23:57 → 5 NORTH 01-30 02:30
PROVIDERS: ADMIT Family Medicine; ATTEND Family Medicine
DX: I25.10 Atherosclerotic heart disease of native coronary artery without angina pectoris (principal); Z68.41 Body mass index [BMI] 40.0-44.9, adult; R00.2 Palpitations; J30.9 Allergic rhinitis, unspecified; I10 Essential (primary) hypertension; E78.00 Pure hypercholesterolemia, unspecified; E11.9 Type 2 diabetes mellitus without complications; E78.5 Hyperlipidemia, unspecified; F41.9 Anxiety disorder, unspecified; K21.9 Gastro-esophageal reflux disease without esophagitis; I25.2 Old myocardial infarction; I27.20 Pulmonary hypertension, unspecified; I49.5 Sick sinus syndrome; I08.1 Rheumatic disorders of both mitral and tricuspid valves; Z95.0 Presence of cardiac pacemaker; Z83.3 Family history of diabetes mellitus; Z95.5 Presence of coronary angioplasty implant and graft; Z87.891 Personal history of nicotine dependence; Z82.0 Family history of epilepsy and other diseases of the nervous system; E66.9 Obesity, unspecified; F32.9 Major depressive disorder, single episode, unspecified; G89.29 Other chronic pain; Z88.2 Allergy status to sulfonamides
CPT/HCPCS: 36415; 71045; 80053; 82553; 82962; 84484; 85025; 93005; 99285-25

== ENCOUNTER → 2019-06-20 | Outpatient (CLI) | payer BC ==
[~2019-06-20] MED LIST changes: -AMLO10TA2 PO; +AMLO10TA8 PO; +CARV3.1210 PO; -CARV3.122 PO; +CARV6.2511 PO; -CARV6.252 PO; +CONTRAST GIVEN. MC PRN; -DOXY100T10 PO; +DOXY100T27 PO; +ESCITALOPRAM OX20 MG PO; +IOHEXOL 240 MG/ML 50ML VIAL. PO ONE; +IOHEXOL 300 MG/ML 100ML VIAL. IV ONE; +LOSA100T14 PO; -LOSA100T6 PO; +METF500T16 PO; -METF500T5 PO; -PANT40TA5 PO; +PANT40TA77 PO
[2019-06-20 09:37] LABS: CREATININE 1.3 mg/dL (0.7-1.3); GFR 67.9
--- NOTE | 2019-06-20 11:07 | RAD ---
CT ABDOMEN W/CONTRAST Indication: Upper abdominal pain Technique: Postcontrast CT imaging was performed of the abdomen, multiplanar reconstruction images submitted. Oral contrast was given. Pelvis was not imaged. One or more of the following individualized dose reduction techniques were utilized for this examination: 1. Automated exposure control 2. Adjustment of the mA and/or kV according to patient size 3. Use of iterative reconstruction technique. Comparison: November 03, 2014 Findings: There is some motion. There is no pleural fluid of the visualized lung bases. There is coronary calcification. Leads from electronic cardiac device are noted. There is diffuse hepatic steatosis. There again has been cholecystectomy. No focal abnormality is identified of the pancreas. There are some splenic granulomas, spleen not significantly enlarged. There is small accessory spleen. Some nodes at the bella hepatis and portacaval region are stable in size. Portal vein enhances. Both kidneys enhance, no hydronephrosis. There is no adrenal nodularity. Visualized bowel is not significantly dilated. There is no free air or free fluid. Pelvis was not imaged. There is mild scattered calcified plaque of the abdominal aorta and iliac arteries. There is new, ventral fat-containing hernia above the umbilicus on the left, neck about 1.5 cm transverse and hernia sac about 2.9 cm transverse. There is also some laxity of the ventral fascia near the umbilicus. IMPRESSION: 1. There is diffuse hepatic steatosis. No acute inflammatory type change is identified. Nonspecific nodes of the portacaval region and bella hepatis are similar. 2. There is new small, fat-containing, left ventral hernia above the umbilicus. 3. There is coronary calcification. Electronically signed by: Landen Mcgowan MD (06/20/2019 11:04 AM) [id number]
== END | disposition home or self-care (01) ==
LOC: CT 08:59
PROVIDERS: ATTEND Family Medicine
DX: K76.0 Fatty (change of) liver, not elsewhere classified (principal); K43.9 Ventral hernia without obstruction or gangrene; I25.10 Atherosclerotic heart disease of native coronary artery without angina pectoris; Z90.49 Acquired absence of other specified parts of digestive tract
CPT/HCPCS: 36415; 74160; 82565; 84520; Q9966; Q9967

== ENCOUNTER → 2019-06-26 | Outpatient (CLI) | payer BC ==
[~2019-06-26] MED LIST changes: -CONTRAST GIVEN. MC PRN; -IOHEXOL 240 MG/ML 50ML VIAL. PO ONE; -IOHEXOL 300 MG/ML 100ML VIAL. IV ONE; +REGADENOSON 0.4 MG/5 ML DISP.SYRIN. IV ONE
--- NOTE | 2019-06-27 11:59 | RAD ---
MR#: [id number] Date of Study: 06/27/2019 Ordering Physician: LUDMILA DEAN Referring Physician: FIORELLA HARRIS Tech: APPROVED REPORT Test Type: Pharmacological Stress Nurse/Tech: Yenifer Jacobo R.N. Test Indications: cad Cardiac History: NE, stents, htn, pacemaker, dm, asthma Medications: see ehr Medical History: see ehr Resting ECG: sr Resting Heart Rate: 78 bpm Resting Blood Pressure: 131/69mmHg Pretest Chest Pain: No chest pain Nurse/Tech Notes lungs cta, heart tones regular Consent: The procedure was explained to the patient in lay terms. Informed consent was witnessed. Alden eout was entered into [address]. History and Stress Test performed by FIORELLA TayTCNati, ARRT (R) (N) Pharm. Details Pharmacologic stress testing was performed using 0.4mg per 5ml of regadenoson given intravenously ove r 7-10 seconds. Stress Symptoms No chest pain or symptoms. POST EXERCISE Reason for Termination: Infusion complete Target HR: No Max HR: 102 bpm Max Blood Pressure: 133/65mmHg Chest Pain: No. Arrhythmia: No. ST Change: No. INTERPRETATION Stress EKG Conclusion: The resting EKG shows a sinus rhythm with nonspecific T-wave changes. The stress EKG shows no significant changes from baseline. No EKG evidence of stress-induced ischemia. LV Perfusion The stress scans show an inferior wall defect. The rest scans show an inferior wall defect. Technically difficult study but scans show a largely fixed inferior wall defect most consistent with a previous infarct. Wall Motion LV systolic function is normal with no regional wall motion abnormalities and an ejection fraction of greater than 70%. Conclusion 1. No EKG evidence of stressed induced ischemia. 2. Nuclear scans show a fixed inferior wall defect on a technically difficult study most consistent w ith a prior infarct. 3. Left ventricular systolic function however is normal with no regional wall motion abnormalities an d an ejection fraction of 70%. 4. Moderate risk Lexiscan nuclear stress test with abnormal perfusion but intact LV function. Signed by : Lm Ashley MD Electronically Approved : 06/27/2019 11:59:18
== END | disposition home or self-care (01) ==
LOC: NM 08:08
PROVIDERS: ATTEND Internal Medicine Cardiovascular Disease
DX: I25.10 Atherosclerotic heart disease of native coronary artery without angina pectoris (principal); I25.2 Old myocardial infarction; I10 Essential (primary) hypertension; E11.9 Type 2 diabetes mellitus without complications; J45.909 Unspecified asthma, uncomplicated; Z95.0 Presence of cardiac pacemaker
CPT/HCPCS: 78452; A9500; 93017; 96376; J2785

== ENCOUNTER → 2019-06-27 | Outpatient (CLI) | payer BC ==
[~2019-06-27] MED LIST changes: -REGADENOSON 0.4 MG/5 ML DISP.SYRIN. IV ONE
--- NOTE | 2019-06-27 12:05 | CARD ---
MR#: [id number] Date of Study: 06/27/2019 Ordering Physician: LUDMILA DEAN, Referring Physician: LUDMILA DEAN Tech: Lala Meza RDCS APPROVED REPORT EXAM: Two-dimensional and M-mode echocardiogram with Doppler and color Doppler. Other Information Quality : Good INDICATION Cardiac Disease: CAD RISK FACTORS Obesity 2D DIMENSIONS RVDd2.4 (2.9-3.5cm)Left Atrium(2D)3.0 (1.6-4.0cm) IVSd1.2 (0.7-1.1cm)Aortic Root(2D)2.8 (2.0-3.7cm) LVDd4.4 (3.9-5.9cm)LVOT Diameter2.1 (1.8-2.4cm) PWd1.2 (0.7-1.1cm)LVDs2.3 (2.5-4.0cm) FS (%) 46.8 %SV69.1 ml LVEF(%)78.4 (>50%) Aortic Valve AoV Peak Woo.139.7cm/sAoV VTI26.7cm AO Peak GR.7.8mmHgLVOT Peak Woo.147.0cm/s AO Mean GR.4mmHgAVA (VMAX)3.77cm2 ROXANNA (VTI)3.90cm2 Mitral Valve MV E Pidfmddq03.1cm/sMV DECEL XPFQ096hx MV A Jnoeuqax55.0cm/sE/A Ratio0.7 Tricuspid Valve TR P. Ectpynvn319zm/sRAP MZZELGGH0gwUr TR Peak Gr.06wiJcHMLY48eyDx Pulmonary Vein S1 Sdmsvabi35.0cm/sD2 Dexyaicf48.8cm/s LEFT VENTRICLE The left ventricle is normal size. There is mild concentric left ventricular hypertrophy. The left ve ntricular systolic function is normal. The Ejection Fraction is 55-60%. There is normal LV segmental wall motion. Transmitral Doppler flow pattern is Grade I-abnormal relaxation pattern. RIGHT VENTRICLE The right ventricle is normal size. The right ventricular systolic function is normal. ATRIA The left atrium size is normal. The right atrium size is normal. The interatrial septum is intact wit h no evidence for an atrial septal defect or patent foramen ovale as noted on 2-D or Doppler imaging. AORTIC VALVE The aortic valve is calcified but opens well. Doppler and Color Flow revealed no significant aortic r egurgitation. There is no significant aortic valvular stenosis. MITRAL VALVE The mitral valve is normal in structure and function. There is no evidence of mitral valve prolapse. There is no mitral valve stenosis. Doppler and Color Flow revealed no mitral valve regurgitation note d. TRICUSPID VALVE The tricuspid valve is normal in structure and function. Doppler and Color Flow revealed mild tricusp id regurgitation. The PA pressure was estimated at 40 mmHg. There is no tricuspid valve stenosis. PULMONIC VALVE The pulmonic valve is not well visualized. Doppler and Color Flow revealed no pulmonic valvular regur gitation. There is no pulmonic valvular stenosis. GREAT VESSELS The aortic root is normal in size. The ascending aorta is not well seen. The IVC was not visualized. PERICARDIAL EFFUSION There is no evidence of significant pericardial effusion. Critical Notification Critical Value: No <Conclusion> The left ventricular systolic function is normal. The Ejection Fraction is 55-60%. There is normal LV segmental wall motion. Transmitral Doppler flow pattern is Grade I-abnormal relaxation pattern. Doppler and Color Flow revealed mild tricuspid regurgitation. The PA pressure was estimated at 40 mmHg. There is no evidence of significant pericardial effusion. Signed by : Ludmila Dean, Electronically Approved : 06/27/2019 12:04:36
== END | disposition home or self-care (01) ==
LOC: ECHO 08:01
PROVIDERS: ATTEND Internal Medicine Cardiovascular Disease
DX: I08.2 Rheumatic disorders of both aortic and tricuspid valves (principal); I25.10 Atherosclerotic heart disease of native coronary artery without angina pectoris; E66.9 Obesity, unspecified
CPT/HCPCS: 93306

== ENCOUNTER → 2019-10-11 | Outpatient (CLI) | payer BC ==
[~2019-10-11] MED LIST changes: +ACET-2061 PO; -ACET325T16 PO; +ALBU2.5V8 IH; +HYDROmorphone 2 MG/ML VIAL IV PRN; +IV RINGERS,LACTATED 1000ML 1,000 ML IV SCH; +LIDOCAINE 1% PF 2 ML VIAL. ID PRN; +MORPHINE SULFATE 2 MG/ML VIAL. IV PRN; +PRED50TA PO; +PROCHLORPERAZINE 10 MG/2 ML VIAL. IV PRN; +fentaNYL PF VIAL 100 MCG/2 ML VIAL IV PRN
[2019-10-17 13:38] VITALS: BP 105/55
== END | disposition home or self-care (01) ==
LOC: CANPRESDC → SURGPAT 11:35 → SURG 11:35 → EDSTATUS 10-16 07:00
PROVIDERS: ATTEND Internal Medicine Gastroenterology
DX: Z01.812 Encounter for preprocedural laboratory examination (principal); Z11.59 Encounter for screening for other viral diseases; R19.7 Diarrhea, unspecified; K64.0 First degree hemorrhoids; K29.50 Unspecified chronic gastritis without bleeding
CPT/HCPCS: C9803; U0003; 36415; 87635

== ENCOUNTER → 2019-10-17 | Day surgery (SDC) | payer BC ==
[~2019-10-17] MED LIST changes: -ACET-2061 PO; +ACET325T16 PO; -ALBU2.5V8 IH; -HYDROmorphone 2 MG/ML VIAL IV PRN; -LIDOCAINE 1% PF 2 ML VIAL. ID PRN; -MORPHINE SULFATE 2 MG/ML VIAL. IV PRN; -PRED50TA PO; -PROCHLORPERAZINE 10 MG/2 ML VIAL. IV PRN; +PROPOFOL 10 MG/ML (20ML) VIAL. IV ONE; -fentaNYL PF VIAL 100 MCG/2 ML VIAL IV PRN
[2019-10-17 13:38] VITALS: BP 105/55
--- NOTE | 2019-10-17 15:22 | HP ---
ADMIT DATE: 10/17/2019 REFERRING PHYSICIAN: Fidelina Lopez MD HISTORY OF PRESENT ILLNESS: A 59-year-old male with past medical history significant for arthritis, asthma, diabetes, GERD, heart disease, hypertension, hyperlipidemia, NC and stents, was seen with persistent epigastric pain in the epigastric region associated with bloating, belching, nausea and diarrhea. He has not had any change in weight. His previous CT scan has been unrevealing. He has been a diabetic since 2016 with A1c of 6.8 last checked. OTC remedies had been unrevealing and Protonix 40 mg daily does not help. With the continued issues of the pain and diarrhea requests additional evaluation. PAST MEDICAL HISTORY: Organic heart disease, status post NC, status post stent, GERD, diabetes and arthritis. ALLERGIES: PENICILLIN AND SULFA. MEDICATIONS: Include acetaminophen, aspirin, atorvastatin, carvedilol, cyclobenzaprine, citalopram, Flonase, losartan, metformin, Naprosyn, and pantoprazole. FAMILY AND SOCIAL HISTORY: Status post CVA, hypertension, liver disease. PAST SURGICAL HISTORY: Status post pacemaker insertion, gallbladder surgery and hernia repair. REVIEW OF SYSTEMS: Per records. PHYSICAL EXAMINATION: GENERAL: Reveals a well-nourished, well-developed male who is alert, cooperative, in no acute distress. VITAL SIGNS: Temperature is 97.4, pulse 70, respirations 20. LUNGS: Clear. CARDIOVASCULAR: Reveals an S1, S2 without S3, S4 or appreciable murmur. ABDOMEN: Reveals a soft abdomen, normal bowel sounds, without appreciable hepatosplenomegaly with epigastric tenderness to deep palpation. EXTREMITIES: Reveals no cyanosis, clubbing or edema. IMPRESSION AND PLAN: Abdominal pain, status post cholecystectomy with nausea and diarrhea, on Protonix. Differential includes ____ disease, inflammatory bowel disease, colon or gastric cancer, irritable bowel syndrome. Therefore, recommend upper endoscopy and colonoscopy to further assess. Risks and benefits of the procedure including risk of hemorrhage and perforation during the operation have been discussed. The patient is willing to proceed. MATTHIAS BURGOS MD DR: JONES/freddy JOB#: [id number] / [id number]
== END ==
LOC: ENDOS 11:14
PROVIDERS: ATTEND Internal Medicine Gastroenterology
DX: R19.7 Diarrhea, unspecified (principal); K64.0 First degree hemorrhoids; K29.50 Unspecified chronic gastritis without bleeding; K63.89 Other specified diseases of intestine; J45.909 Unspecified asthma, uncomplicated; E11.9 Type 2 diabetes mellitus without complications; K21.9 Gastro-esophageal reflux disease without esophagitis; I11.9 Hypertensive heart disease without heart failure; E78.5 Hyperlipidemia, unspecified; I25.2 Old myocardial infarction; Z88.1 Allergy status to other antibiotic agents; Z87.39 Personal history of other diseases of the musculoskeletal system and connective tissue; Z88.0 Allergy status to penicillin; Z79.82 Long term (current) use of aspirin; Z79.899 Other long term (current) drug therapy; Z86.73 Personal history of transient ischemic attack (TIA), and cerebral infarction without residual deficits; Z79.84 Long term (current) use of oral hypoglycemic drugs
CPT/HCPCS: 43235; 45378; J2704

== ENCOUNTER 2019-11-16 15:50 | Emergency (ER) | payer BC ==
[~2019-11-16] VITALS: Ht 172.7 cm; Wt 127.0 kg
[~2019-11-16 15:50] MED LIST changes: +ACET-2061 PO; -ACET325T16 PO; -IV RINGERS,LACTATED 1000ML 1,000 ML IV SCH; -PROPOFOL 10 MG/ML (20ML) VIAL. IV ONE
[2019-11-16] MEDS ORDERED: ASPIRIN 325 MG TABLET PO ONE (16:45)
[2019-11-16] MEDS ORDERED: MORPHINE SULFATE 4 MG/ML VIAL. IV/SQ PRN (16:45)
[2019-11-16 16:55] LABS: CALCIUM 8.8 mg/dL (8.5-10.1); CREATININE 1.4 mg/dL (0.7-1.3); GFR 62.3; POTASSIUM 3.8 mmol/L (3.5-5.1)
[2019-11-16 16:57] LABS: BASO # 0.1 x10^3/uL (0.0-0.2); BASO % 1 % (0-3); EOS # 0.3 x10^3/uL (0.0-0.7); EOS % 3 % (0-3); HEMATOCRIT 37.2 % (39.0-53.0); HEMOGLOBIN 12.4 g/dL (13.0-17.5); LYMPH # 3.1 x10^3/uL (1.0-4.8); LYMPH % 30 % (24-48); MEAN CORPUSCULAR HEMOGLOBIN 30 pg (25-35); MEAN CORPUSCULAR HGB CONC 34 g/dL (31-37); MEAN CORPUSCULAR VOLUME 89 fL (79-100); MONO # 0.9 x10^3/uL (0.0-1.1); MONO % 8 % (0-9); NEUT # 6.2 x10^3/uL (1.8-7.7); NEUT % 59 % (31-73); PLATELET COUNT 395 x10^3/uL (140-400); RED BLOOD COUNT 4.16 x10^6/uL (4.30-5.70); RED CELL DISTRIBUTION WIDTH 16.2 % (11.5-14.5); WHITE BLOOD COUNT 10.4 x10^3/uL (4.0-11.0)
[2019-11-16 17:01] LABS: ALBUMIN 3.3 g/dL (3.4-5.0); ALBUMIN/GLOBULIN RATIO 0.8 (1.0-1.7); MAGNESIUM 1.4 mg/dL (1.8-2.4); TOTAL BILIRUBIN 0.7 mg/dL (0.2-1.0); TOTAL PROTEIN 7.3 g/dL (6.4-8.2)
[2019-11-16 17:30] VITALS: BP 165/90
--- NOTE | 2019-11-16 17:44 | RAD ---
PORTABLE CHEST 1V Clinical Indication: Reason: cough / Spl. Instructions: / History: Comparison: AP chest January 30, 2018. Findings: There is left chest dual-chamber pacer. Cardiac size upper limits of normal but stable. Unchanged minimal scarring right infrahilar. No acute airspace disease is seen. There is no pneumothorax. No pleural effusion is appreciated. No acute bone abnormality. IMPRESSION: No acute cardiopulmonary process. Electronically signed by: Natanael Bernardo MD (11/16/2019 5:41 PM) [facility]
[2019-11-16] MEDS ORDERED: ALBU2.5V8 IH (19:45)
[2019-11-16] MEDS ORDERED: PRED50TA PO (19:45)
--- NOTE | 2019-11-16 19:46 | PHYS DOC ---
Past Medical History Past Medical History: Arrhythmia, CAD, Diabetes-Type II, High Cholesterol, Hypertension, [place] Additional Past Medical Histor: chronic back pain, [place] 2016 Past Surgical History: Cholecystectomy, Other Additional Past Surgical Histo: PACEMAKER, HERNIA, CARDIAC STENTS Smoking Status: Former Smoker Alcohol Use: None Drug Use: None General Adult EDM: Chief Complaint: SHORTNESS OF BREATH HPI: HPI: Patient is a 59 year old male with a history of obesity, hypertension, asthma, diabetes type 2, VT who presents to the ED today complaining of shortness of breath for 2 days. Patient denies any chest pain. He reports using inhaler with some relief. Denies any contact or concern for COVID19. Review of Systems: Review of Systems: Constitutional: Denies fever or chills. [] Eyes: Denies change in visual acuity. [] HENT: Denies nasal congestion or sore throat. [] Respiratory: Reports shortness of breath. Denies cough Cardiovascular: Denies chest pain or edema. [] GI: Denies abdominal pain, nausea, vomiting, bloody stools or diarrhea. [] : Denies dysuria. [] Musculoskeletal: Denies back pain or joint pain. [] Integument: Denies rash. [] Neurologic: Denies headache, focal weakness or sensory changes. [] Endocrine: Denies polyuria or polydipsia. [] Lymphatic: Denies swollen glands. [] Psychiatric: Denies depression or anxiety. [] Heart Score: Risk Factors: Risk Factors: DM, Current or recent (<one month) smoker, HTN, HLP, family history of CAD, obesity. Risk Scores: Score 0 - 3: 2.5% MACE over next 6 weeks - Discharge Home Score 4 - 6: 20.3% MACE over next 6 weeks - Admit for Clinical Observation Score 7 - 10: 72.7% MACE over next 6 weeks - Early Invasive Strategies Current Medications: Current Medications Medications (Trade) Dose Ordered Sig/[facility] Start Time Stop Time Status Last Admin Dose Admin Aspirin (Adina Aspirin) 325 mg 1X ONCE 11/16/19 16:45 11/16/19 16:46 DC 11/16/19 16:55 325 MG Morphine Sulfate (Morphine Sulfate) 4 mg PRN Q15MIN PRN 11/16/19 16:45 11/17/19 16:44 11/16/19 16:55 4 MG Allergies: Allergies: Allergies Coded Allergies Type Severity Reaction Last Updated Verified Penicillins Allergy Intermediate Rash 09/10/14 Yes Sulfa (Sulfonamide Antibiotics) Allergy Intermediate Rash 09/10/14 Yes lisinopril Allergy Intermediate 09/13/15 Yes Physical Exam: PE: Constitutional: Morbidly obese patient. Well developed, well nourished, no acute distress, non-toxic appearance. [] HENT: Normocephalic, atraumatic, bilateral external ears normal, oropharynx moist, no oral exudates, nose normal. [] Eyes: PERRLA, EOMI, conjunctiva normal, no discharge. [] Neck: Normal range of motion, no tenderness, supple, no stridor. [] Cardiovascular:Heart rate regular rhythm, no murmur [] Lungs & Thorax: Bilateral breath sounds clear to auscultation [] Abdomen: Bowel sounds normal, soft, no tenderness, no masses, no pulsatile masses. [] Skin: Warm, dry, no erythema, no rash. [] Back: No tenderness, no CVA tenderness. [] Extremities: No tenderness, no cyanosis, no clubbing, ROM intact, no edema. [] Neurologic: Alert and oriented X 3, normal motor function, normal sensory function, no focal deficits noted. [] Psychologic: Affect normal, judgement normal, mood normal. [] Current Patient Data: Labs: Laboratory Tests Test 11/16/19 16:07 White Blood Count 10.4 x10^3/uL (4.0-11.0) Red Blood Count 4.16 x10^6/uL (4.30-5.70) L Hemoglobin 12.4 g/dL (13.0-17.5) L Hematocrit 37.2 % (39.0-53.0) L Mean Corpuscular Volume 89 fL (79-100) Mean Corpuscular Hemoglobin 30 pg (25-35) Mean Corpuscular Hemoglobin Concent 34 g/dL (31-37) Red Cell Distribution Width 16.2 % (11.5-14.5) H Platelet Count 395 x10^3/uL (140-400) Neutrophils (%) (Auto) 59 % (31-73) Lymphocytes (%) (Auto) 30 % (24-48) Monocytes (%) (Auto) 8 % (0-9) Eosinophils (%) (Auto) 3 % (0-3) Basophils (%) (Auto) 1 % (0-3) Neutrophils # (Auto) 6.2 x10^3/uL (1.8-7.7) Lymphocytes # (Auto) 3.1 x10^3/uL (1.0-4.8) Monocytes # (Auto) 0.9 x10^3/uL (0.0-1.1) Eosinophils # (Auto) 0.3 x10^3/uL (0.0-0.7) Basophils # (Auto) 0.1 x10^3/uL (0.0-0.2) Sodium Level 141 mmol/L (136-145) Potassium Level 3.8 mmol/L (3.5-5.1) Chloride Level 103 mmol/L (98-107) Carbon Dioxide Level 28 mmol/L (21-32) Anion Gap 10 (6-14) Blood Urea Nitrogen 14 mg/dL (8-26) Creatinine 1.4 mg/dL (0.7-1.3) H Estimated GFR (Cockcroft-Gault) 62.3 BUN/Creatinine Ratio 10 (6-20) Glucose Level 149 mg/dL (70-99) H Lactic Acid Level 2.1 mmol/L (0.4-2.0) H Calcium Level 8.8 mg/dL (8.5-10.1) Magnesium Level 1.4 mg/dL (1.8-2.4) L Total Bilirubin 0.7 mg/dL (0.2-1.0) Aspartate Amino Transferase (AST) 23 U/L (15-37) Alanine Aminotransferase (ALT) 35 U/L (16-63) Alkaline Phosphatase 189 U/L (46-116) H Creatine Kinase 107 U/L (39-308) Creatine Kinase MB (Mass) 0.9 ng/mL (0.0-3.6) Creatine Kinase MB Relative Index 0.8 % (0-4) Troponin I Quantitative < 0.017 ng/mL (0.000-0.055) HN-Gqo-V-Type Natriuretic Peptide 78 pg/mL (0-124) Total Protein 7.3 g/dL (6.4-8.2) Albumin 3.3 g/dL (3.4-5.0) L Albumin/Globulin Ratio 0.8 (1.0-1.7) L Procalcitonin < 0.10 ng/mL (0.00-0.10) Thyroid Stimulating Hormone (TSH) 2.054 uIU/mL (0.358-3.74) Laboratory Tests 11/16/19 16:07 Laboratory Tests 11/16/19 16:07 Vital Signs: Vital Signs Date Time Temp Pulse Resp B/P (MAP) Pulse Ox O2 Delivery O2 Flow Rate FiO2 11/16/19 17:30 72 17 165/90 (115) 92 Room Air 11/16/19 16:09 98.4 98.4 EKG: EKG: [] Radiology/Procedures: Radiology/Procedures: []PROCEDURE: PORTABLE CHEST 1V PORTABLE CHEST 1V Clinical Indication: Reason: cough / Spl. Instructions: / History: Comparison: AP chest January 30, 2018. Findings: There is left chest dual-chamber pacer. Cardiac size upper limits of normal but stable. Unchanged minimal scarring right infrahilar. No acute airspace disease is seen. There is no pneumothorax. No pleural effusion is appreciated. No acute bone abnormality. IMPRESSION: No acute cardiopulmonary process. Electronically signed by: Natanael Shiekh MD (11/16/2019 5:41 PM) [facility] DICTATED and SIGNED BY: NATANAEL SHEIKH MD DATE: 11/16/191740 Course & Med Decision Making: Course & Med Decision Making Pertinent Labs and Imaging studies reviewed. (See chart for details) This is a 59-year-old male patient presenting to the ED today with shortness of breath for 2 days. O2 sats 95% on room air on arrival. History of asthma. No fever. CBC with a normal WBC, lactic is 2.1. CMP with nothing really acute. Chest x-ray interpreted by radiologist as negative for any acute findings. Patient will be put on short course of prednisone. Recommended breathing treatments at home and following up with the PCP. Robert Disclaimer: Robert Disclaimer: This electronic medical record was generated, in whole or in part, using a voice recognition dictation system. Departure Departure Impression: Primary Impression: Asthma Qualified Codes: J45.21 - Mild intermittent asthma with (acute) exacerbation Disposition: HOME, SELF-CARE Condition: STABLE Referrals: RANDY YOUNG MD (PCP) Follow-up next week Patient Instructions: Asthma, Adult Additional Instructions: You were evaluated in the emergency room for shortness of breath. Your chest x- ray is negative for pneumonia or any acute findings. Please contact your primary care doctor on Monday and set up a follow-up appointment. We will put y ou on prednisone for 5 days. Continue breathing treatments as prescribed by your primary care doctor. Scripts Albuterol Sulfate (Proair Hfa) 8.5 Gm Hfa.aer.ad 2 PUFF IH PRN Q4-6HRS PRN for wheezing for 21 Days, #1 INHALER 0 Refills Prov: NACHO BELTRAN APRN 11/16/19 Prednisone (PREDNISONE) 50 Mg Tablet 1 TAB PO DAILY, #5 TAB Prov: NACHO BELTRAN APRN 11/16/19 Justicifation of Admission Dx: Justifications for Admission: Justification of Admission Dx: N/A NACHO BELTRAN APRN Nov 16, 2019 19:45
[2019-11-16] MEDS ORDERED: predniSONE 10 MG TABLET PO ONE (20:00)
[2019-11-16 20:01] LABS: BILIRUBIN,URINE SMALL (NEG); CLARITY,URINE CLEAR; COLOR,URINE YELLOW; NITRITE,URINE NEGATIVE (NEG); PROTEIN,URINE NEGATIVE (NEG-TRACE)
[2019-11-16 20:08] LABS: BACTERIA,URINE 0 /HPF (0-FEW); BARBITURATES NEG (NEG); BENZODIAZEPINES NEG (NEG); CANNABINOIDS NEG (NEG); COCAINE NEG (NEG); METHADONE NEG (NEG); OPIATES POS (NEG); PHENCYCLIDINE NEG (NEG); RBC,URINE 0 /HPF (0-2)
[2019-11-16 20:24] LABS: AMPHETAMINE/METHAMPHETAMINE NEG (NEG)
--- NOTE | 2019-11-17 04:23 | EKG ---
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
== END 2019-11-16 20:05 | disposition home or self-care (01) ==
LOC: ER 15:50
DX: J45.21 Mild intermittent asthma with (acute) exacerbation (principal); R06.02 Shortness of breath; I11.9 Hypertensive heart disease without heart failure; E11.9 Type 2 diabetes mellitus without complications; I25.2 Old myocardial infarction; E78.00 Pure hypercholesterolemia, unspecified; G89.29 Other chronic pain; Z90.89 Acquired absence of other organs; Z98.890 Other specified postprocedural states; Z87.891 Personal history of nicotine dependence; Z88.6 Allergy status to analgesic agent; Z88.0 Allergy status to penicillin; Z88.2 Allergy status to sulfonamides
CPT/HCPCS: 36415; 71045; 80053; 80307; 81001; 82553; 83605; 83735; 83880; 84145; 84443; 84484; 85025; 87040; 93005; 96372; 99285; J2270; J7512

== ENCOUNTER → 2020-01-24 | Outpatient (CLI) | payer BC ==
[~2020-01-24] MED LIST changes: +ALBU2.5V8 IH; +CARV12.511 PO; +GLIP5TAB10 PO; +IBUP200C9 PO; +LIPITOR80 MG PO; +METF10007 PO; +PRED50TA PO
--- NOTE | 2020-01-24 19:30 | RAD ---
EXAM: AP, lateral and open-mouth odontoid views of the cervical spine DATE: 01/24/2020 12:00 AM CLINICAL HISTORY: Reason: NECK PAIN , RADIATES DOWN RIGHT SIDE / Spl. Instructions: / History: COMPARISON: None available. FINDINGS: On the lateral view, the cervical spine is imaged from the skull base to anterior superior T1. Vertebral body heights are preserved. Mild C2-3, C3-4, C4-5, moderate C5-6, C6-7 and moderate to severe C7-T1 disc height loss. Prominent anterior posterior endplate osteophytes are seen. No spondylolisthesis. There is no offset of the lateral masses of C1 on C2. Normal predental space. No significant prevertebral soft tissue swelling. IMPRESSION: 1. Multilevel spondylosis as above 2. Negative acute fracture or subluxation. Electronically signed by: Tong Calvillo MD (01/24/2020 7:27 PM) [facility]
== END | disposition home or self-care (01) ==
LOC: RAD 12:10
PROVIDERS: ATTEND Family Medicine
DX: M47.812 Spondylosis without myelopathy or radiculopathy, cervical region (principal); M54.2 Cervicalgia
CPT/HCPCS: 72040

== ENCOUNTER → 2020-02-04 | Outpatient (CLI) | payer BC ==
[~2020-02-04] MED LIST changes: -CARV12.511 PO; -GLIP5TAB10 PO; -IBUP200C9 PO; -LIPITOR80 MG PO; -METF10007 PO
--- NOTE | 2020-02-04 11:29 | RAD ---
EXAM: CT Cervical Spine with and without IV contrast INDICATION: Reason: CERVICAL RADICULOPATHY, RIGHT SIDE NECK PAIN / Spl. Instructions: / History: TECHNIQUE: Multi-detector row CT images were obtained through the cervical spine with and without the use of IV contrast. Post-processing sagittal and coronal reconstructed images were obtained for interpretation. All CT scans performed at this facility utilize dose optimization techniques as appropriate to the exam, including the following: Automated exposure control and adjustment of the mA and/or KV according to patient size (this includes techniques or standardized protocols for targeted exams where dose is indication/reason for exam). IV CONTRAST: Administered COMPARISON: C-spine x-ray series 01/24/2020 FINDINGS: CRANIOCERVICAL JUNCTION: Unremarkable. ALIGNMENT: Cervical spine is straightened. No listhesis. OSSEOUS: No evidence of fracture or bone destruction. DISC SPACES: At C2-C3, disc osteophyte complex results in no significant central canal or foraminal stenosis. At C3-C4, disc osteophyte complex and uncovertebral hypertrophy left greater than right result in moderate left foraminal stenosis and mild right foraminal stenosis. Central canal is widely patent. Mild flattening the ventral thecal sac. At C4-C5, disc osteophyte complex with bilateral uncovertebral hypertrophy flattening the ventral thecal sac resulting in central canal AP diameter of 9 mm there is moderate left and severe right foraminal stenosis. At C5-C6, disc osteophyte complex with uncovertebral hypertrophy results in severe bilateral foraminal narrowing. Mild central canal stenosis with AP diameter measuring 8 mm. At C6-C7, disc osteophyte complex and bilateral uncovertebral hypertrophy results in moderate to severe bilateral foraminal stenosis. Central canal measures 9 mm. At C7-T1, disc osteophyte complex results in moderate bilateral foraminal stenosis and mild flattening of the ventral thecal sac. FACET JOINTS: Minimal facet hypertrophy, most conspicuous at C7-T1 bilaterally. SPINAL CANAL: Varying degrees of central canal narrowing as described. NEUROFORAMINA: Varying degrees of foraminal stenoses as described. SOFT TISSUES: Left chest pacemaker incidentally noted.. IMPRESSION: Multilevel cervical spinal degenerative spondylosis with varying degrees of central canal and foraminal stenosis as described. Electronically signed by: Alexis Betts MD (02/04/2020 11:26 AM) [id number]
== END | disposition home or self-care (01) ==
LOC: CT 12:49
PROVIDERS: ATTEND Family Medicine
DX: M47.22 Other spondylosis with radiculopathy, cervical region (principal); M25.78 Osteophyte, vertebrae; M48.02 Spinal stenosis, cervical region
CPT/HCPCS: 72125

== ENCOUNTER → 2020-02-12 | Outpatient (CLI) | payer BC ==
[~2020-02-12] MED LIST changes: +CARV12.511 PO; +GLIP5TAB10 PO; +IBUP200C9 PO; +IOHEXOL 180 MG/ML 10 ML VIAL. ONE; +LIPITOR80 MG PO; +METF10007 PO; +methylPREDNISolone ACETATE 40 MG/ML VIAL. ONE; +methylPREDNISolone ACETATE 80 MG/ML VIAL. ONE
--- NOTE | 2020-02-12 11:30 | PDOC2 ---
INITIAL PAIN CONSULT DATE OF SERVICE: DOS: DATE: 02/12/20 TIME: 11:19 CHIEF COMPLAINT: Chief Complaint: Neck and right shoulder pain HISTORY OF PRESENT ILLNESS: 59-year-old male presents with your pain in the base the neck and right shoulder and upper back and arm for about 1 month not result of any specific injury or accident that he is aware of, but getting worse with time patient ports pain in the base the neck rating to the right side of the face and ear right shoulder right upper extremity to the deltoid as well as into the bicep on the right side but mostly in the posterior scapular region on the right. Patient which is worse at night is aching describes as constant sharp stabbing throbbing shooting changes during the day with activity worse with reaching over his head with his right arm worse with repetitive movements and weightbearing with his right shoulder as well. Patient was awakened from sleep at least twice a night does not affect his bowel bladder control can affect his body to walk he is using a cane in his right hand. Patient did have a CT scan of his cervical spine showing multilevel cervical spinal degenerative spondylosis [id number] and C6-7 with severe bilateral foraminal stenosis C6-7 severe bilateral foraminal narrowing C5-6 moderate left and severe right foraminal stenosis C4-5. Patient ports no loss of motor function but significant fatigability with the right upper extremity with repetitive motions or reaching. PAST MEDICAL HISTORY: PMH: Hypertension, type 2 diabetes, shortness of breath, arthritis, anxiety, gastroesophageal reflux, sick sinus syndrome with pacemaker PREVIOUS SURGERIES: Past Surgical Hx: Vocal hernia repair, ventral hernia repair, pacemaker placement, cholecystectomy CURRENT MEDICATIONS: Current Meds: Active Scripts Medications Dose Route/Sig Max Daily Dose Days Date Category Dose Instructions Proair Hfa (Albuterol Sulfate) 8.5 Gm Hfa.aer.ad 2 Puff IH PRN Q4-6HRS PRN 21 11/16/19 Rx Prednisone 50 Mg Tablet 1 Tab PO DAILY 11/16/19 Rx Cyclobenzaprine Hcl 10 Mg Tablet 10 Mg PO TID 10/16/19 Reported Escitalopram Oxalate 20 Mg Tablet 1 Tab PO DAILY 01/30/18 Rx Naproxen 250 Mg Tablet 250 Mg PO BID PRN 07/12/16 Rx Carvedilol (Carvedilol) 6.25 Mg Tablet 6.25 Mg PO BIDWMEALS 02/06/16 Rx Losartan Potassium 100 Mg Tablet 100 Mg PO DAILY 09/13/15 Reported LAST DOSE GIVEN: DATE: 02/06/16 TIME: 9 AM NEXT DOSE DUE: DATE: 02/07/16 TIME: 9 AM Mapap (Acetaminophen) 325 Mg Tablet 650 Mg PO PRN Q6HRS PRN 08/08/15 Rx Atorvastatin Calcium 40 Mg Tablet 40 Mg PO HS 08/08/15 Rx Flonase Allergy Relief (Fluticasone Propionate) 9.9 Ml [place].susp 2 Sprays NS DAILY 08/05/15 Reported Aspirin 81 Mg Tab.chew 1 Tab PO DAILY 08/05/15 Reported LAST DOSE GIVEN: DATE: 02/06/16 TIME: 9 AM NEXT DOSE DUE: DATE: 02/07/16 TIME: 9 AM Metformin Hcl 500 Mg Tablet 1 Tab PO DAILY 08/05/15 Reported LAST DOSE GIVEN: DATE: 02/06/16 TIME: 9 AM NEXT DOSE DUE: DATE: 02/07/16 TIME: 9 AM Pantoprazole Sodium (Pantoprazole Sodium) 40 Mg Tablet.dr 40 Mg PO DAILY 07/04/13 Reported LAST DOSE GIVEN: DATE: 02/06/16 TIME: 7:30 AM NEXT DOSE DUE: DATE: 02/07/16 TIME: one hour to one half hour before breakfast ALLERGIES; Allergies: Coded Allergies: Penicillins (Verified Allergy, Intermediate, Rash, 09/10/14) Sulfa (Sulfonamide Antibiotics) (Verified Allergy, Intermediate, Rash, 09/10/14) lisinopril (Verified Allergy, Intermediate, 09/13/15) caused cough FAMILY HISTORY: Family Hx: Hypertension SOCIAL HISTORY: Social Hx: Patient is not smoke not use any illegal illicit or recreational drugs, not drink alcohol is currently retired lives locally in [facility] REVIEW OF SYSTEMS: ROS: Positive for those items mentioned in history of present illness, is complete full and well-documented on patient's chart. PHYSICAL EXAM: VS: Blood pressure 168/90 pulse 77 respiration 16 temperature is 98.3 F height is 5 foot 8 inches weight is 2 7 8 pounds PE: PHYSICAL EXAMINATION: GENERAL: The patient is awake, alert, oriented, appropriate, very pleasant demeanor HEENT: Shows normocephalic, atraumatic. Extraocular movements are intact and symmetrical. Oral cavity: Mucous membranes moist and pink. Dentition is intact. NECK: Shows anterior throat supple without palpable lymphadenopathy noted. Swallow reflex symmetrical. CHEST: Shows normal on inspection, with pacemaker in left upper chest. Breath sounds are clear bilaterally, no rales rhonchi or wheezes auscultated. HEART: Shows S1, S2 clear. No murmurs auscultated. ABDOMEN: Soft, nontender, nondistended, obese. No palpable organomegaly is noted. No rebound or guarding demonstrated. BACK: Shows spine grossly in the midline. Normal-appearing cervical lordotic curvature, paraspinous muscular shows symmetrical on inspection with palpation some moderate tenderness diffusely throughout the upper middle low to space the paraspinous muscles slightly more on the right than the left. Patient shows good rotation motion cervical spine both laterally as well as extension flexion with some moderate tenderness with right lateral rotation past 45 degrees only. There is slightly increased thoracic kyphosis, some minor flattening of the lumbar lordotic curvature. Lumbar paraspinous muscles show symmetrical on inspection, on palpation shows some moderate tenderness diffusely throughout the upper, middle and lower distribution of the paraspinous muscles bilaterally, without specific trigger points, without radiation of pain. The patient has goo d rotational motion of the lumbar spine, both laterally as well as extension and flexion without significant difficulty. No tenderness over the spinous processes, sacrum or sacroiliac regions. EXTREMITIES: Upper extremities show deep tendon reflexes 2+ in the biceps and triceps tendons. Motor exam is 4 on a scale of 5 with right shield cleaner strength bicep and tricep flexion and 5/5 on the left. Peripheral pulses are 2+ radial. No peripheral edema is noted bilaterally. Upper extremities are warm and dry to touch, equal in color and appearance. The patient is able to reach over his head with both arms with some mild tenderness on the right side only no loss of strength with resistance with shoulder shrug bilaterally as well as abduction of the shoulders at 90 degrees bilaterally. SKIN: Shows warm and dry, good turgor. No edema. No sores, rashes or bruising throughout. IMPRESSION: Impression: 59-year-old male with approximate 1 month history of pain in the right side of the neck and right upper extremity CT scan cervical spine as noted Type 2 diabetes Hypertension Arthritis Plan: Options were discussed with the patient including conservative medical management physical therapies interventional techniques; patient would like to proceed with interventional techniques we discussed a cervical epidural steroid injection using descriptions as well as anatomical models to describe the procedure. Risks are then discussed including but not limited to bleeding infection possibility of epidural hematoma subsequent neurological compromise dural puncture headache spinal cord and or nerve damage side effects of steroid medication and portal scarring pain control. Patient understands and agrees, and like to proceed. Procedure cervical epidural steroid injection at the C6-7 level, using local anesthetic under sterile prep and drape using C-arm fluoroscopic guidance under local anesthesia medications injected ; 120 mg Depo-Medrol + 5 mL normal saline and 2 mL contrast; condition at discharge is stable patient tolerated procedure well. and had no complications ENEDELIA HENDERSON MD Feb 12, 2020 11:30
== END | disposition home or self-care (01) ==
LOC: PNCL 09:20
PROVIDERS: ATTEND Anesthesiology
DX: M54.2 Cervicalgia (principal); M25.511 Pain in right shoulder; I10 Essential (primary) hypertension; E11.9 Type 2 diabetes mellitus without complications; K21.9 Gastro-esophageal reflux disease without esophagitis; F41.9 Anxiety disorder, unspecified; M19.90 Unspecified osteoarthritis, unspecified site; Z98.890 Other specified postprocedural states; Z79.899 Other long term (current) drug therapy; Z88.0 Allergy status to penicillin; Z88.2 Allergy status to sulfonamides; Z88.8 Allergy status to other drugs, medicaments and biological substances; Z87.891 Personal history of nicotine dependence; Z79.84 Long term (current) use of oral hypoglycemic drugs
CPT/HCPCS: 62321; J1030; J1040; Q9965

== ENCOUNTER → 2020-08-25 | Outpatient (CLI) | payer BC ==
[~2020-08-25] MED LIST changes: +AMLO-187 PO; -AMLO10TA8 PO; -CLIN150C14 PO; +CLIN150C15 PO; -IOHEXOL 180 MG/ML 10 ML VIAL. ONE; +NAPR-699 PO; -NAPR250T6 PO; -methylPREDNISolone ACETATE 40 MG/ML VIAL. ONE; -methylPREDNISolone ACETATE 80 MG/ML VIAL. ONE
--- NOTE | 2020-08-25 12:31 | CARD ---
MR#: [id number] Date of Study: 08/25/2020 Ordering Physician: LUDMILA DEAN, Referring Physician: LUDMILA DEAN Tech: Amanda Rios [facility] APPROVED REPORT EXAM: Two-dimensional and M-mode echocardiogram with Doppler and color Doppler. Other Information Quality : AverageHR: 60bpm Rhythm : NSR INDICATION CAD RISK FACTORS Hypertension Obesity Hyperlipidemia Diabetes 2D DIMENSIONS RVDd3.2 (2.9-3.5cm)Left Atrium(2D)4.8 (1.6-4.0cm) IVSd1.3 (0.7-1.1cm)Aortic Root(2D)3.0 (2.0-3.7cm) LVDd4.8 (3.9-5.9cm)LVOT Diameter2.3 (1.8-2.4cm) PWd1.3 (0.7-1.1cm)IVSs1.5 (0.8-1.2cm) LA Fleypn97 (18-58mL)LVDs4.6 (2.5-4.0cm) FS (%) 4.1 %PWs1.7 (0.8-1.2cm) SV9.8 mlLVEF(%)9.4 (>50%) Aortic Valve AoV Peak Woo.118.7cm/sAoV VTI24.9cm AO Peak GR.5.6mmHgLVOT Peak Woo.127.1cm/s LVOT VTI 25.62cmAO Mean GR.3mmHg ROXANNA (VMAX)3.82ev6OAL (VTI)4.37cm2 Mitral Valve MV E Utktinlh88.3cm/sMV DECEL [id number] MV A Edzcnjsf39.2cm/sMV [id number] E/A Ratio0.9MVA (PHT)2.69cm2 TDI E/Lateral E'5.7E/Medial E'8.2 Pulmonary Valve PV Peak Xbizkpjr25.6cm/sPV Peak Grad.4mmHg Tricuspid Valve TR P. Omlrarkl008cj/sTR Peak Gr.35mmHg Pulmonary Vein S1 Uvpxmppg07.4cm/sD2 Brgsoxbv30.5cm/s PVa [id number] LEFT VENTRICLE The left ventricle is normal size. There is mild concentric left ventricular hypertrophy. The left ve ntricular systolic function is normal and the ejection fraction is within normal range. Estimated eje ction fraction 55-60%. There is normal LV segmental wall motion. The left ventricular diastolic funct ion and filling is normal for age. RIGHT VENTRICLE The right ventricle is normal size. There is normal right ventricular wall thickness. The right ventr icular systolic function is normal. There is a pacing lead in the RA/RV ATRIA The left atrium size is normal. The right atrium is mildly dilated. The interatrial septum is intact with no evidence for an atrial septal defect or patent foramen ovale as noted on 2-D or Doppler imagi ng. AORTIC VALVE The aortic valve is normal in structure and function. Doppler and Color Flow revealed no significant aortic regurgitation. There is no significant aortic valvular stenosis. MITRAL VALVE The mitral valve is normal in structure and function. There is no evidence of mitral valve prolapse. There is no mitral valve stenosis. Doppler and Color-flow revealed mild mitral regurgitation. TRICUSPID VALVE The tricuspid valve is normal in structure and function. Doppler and Color Flow revealed mild to mode rate tricuspid regurgitation. Estimated PAP 40 mmHg. There is no tricuspid valve stenosis. PULMONIC VALVE Doppler and Color Flow revealed no pulmonic valvular regurgitation. There is no pulmonic valvular doe nosis. GREAT VESSELS The aortic root is normal in size. The ascending aorta is normal in size. The IVC is normal in size a nd collapses >50% with inspiration. PERICARDIAL EFFUSION There is no evidence of significant pericardial effusion. Critical Notification Critical Value: No <Conclusion> The left ventricular systolic function is normal and the ejection fraction is within normal range. E stimated ejection fraction 55-60%. There is normal LV segmental wall motion. Doppler and Color Flow revealed mild to moderate tricuspid regurgitation. Estimated PAP 40 mmHg. There is a pacing lead in the RA/RV Signed by : Jorge Waite, Electronically Approved : 08/25/2020 12:31:27
== END ==
LOC: ECHO 10:09
PROVIDERS: ATTEND Internal Medicine Cardiovascular Disease
DX: I08.1 Rheumatic disorders of both mitral and tricuspid valves (principal); I49.5 Sick sinus syndrome
CPT/HCPCS: 93306